=== PATIENT | female | born 1995 | race African-American/Black ===

== ENCOUNTER 2016-07-11 03:28 | Emergency (ER) | payer OTHER ==
[~2016-07-11 03:28] MED LIST: ADVAIR 100-501 EAC1; ALBUTEROL17 GM; ZYRTEC
== END 2016-07-11 03:33 | disposition home or self-care (01) ==
LOC: SED 03:28
DX: H66.002 Acute suppurative otitis media without spontaneous rupture of ear drum, left ear (principal); J06.9 Acute upper respiratory infection, unspecified; J45.909 Unspecified asthma, uncomplicated
CPT/HCPCS: 99282

== ENCOUNTER 2016-12-22 13:57 | Emergency (ER) | payer OTHER ==
--- NOTE | ~2016-12-22 | CR142 ---
[facility] A Service of [facility] RADIOLOGY TEXT RESULTS PATIENT: CHU STEVE LOCATION: SED : [birth year] UNIT #: [id number] AGE: [address]: JESSE HAMM SEX: F ORDER DR: [id number] [place] [id number] E MR#: [id number] Acc #: [id number] NAME: CHU STEVE : 1995 SEX: F STUDY DATE/TIME: 12/22/2016 14:12 UNIT: SED ROOM: STUDY DESCRIPTION: CR Hand Min 3 Views Rt Attending Physician: (Mars) Jesse Hamm Ordering Physician: Nkechi) Jesse Hamm MEDICAL IMAGING REPORT This report is preliminary unless electronic signature is present. EXAM Right hand series, dated 12/22/2016. COMPARISON None. HISTORY Right hand and right thumb pain for last 2 days. Trauma. FINDINGS Three views of the right thumb were obtained. No acute displaced fracture or dislocation is seen. There is an oval well-corticated 6 mm opacity noted in the medial and anterior aspect of the PIP joint of the third digit, within the soft tissues. No acute displaced fracture or dislocation is seen. Soft tissues do not demonstrate any significant abnormality. IMPRESSION 1. No acute displaced fracture or dislocation. 2. There is a well-corticated 6 mm opacity in the medial and anterior aspect of the PIP joint of the third digit, within the soft tissues. It is probably an ossicle or a benign calcification. No adjacent soft tissue swelling. Dictated by... Edwin Tellez M.D. THIS IS AN ELECTRONICALLY VERIFIED REPORT Edwin Tellez M.D. at 12/23/2016 3:01 PM CPR/jt TD: 12/22/2016 19:15 [facility] A Service of [facility] RADIOLOGY TEXT RESULTS PATIENT: CHU STEVE LOCATION: SED : [birth year] UNIT #: [id number] AGE: [address]: JESSE HAMM SEX: F ORDER DR: JOB #: [id number] MEDICAL IMAGING REPORT Page 1 of 1
[2016-12-22] MEDS ORDERED: BC PILLS (13:59)
== END 2016-12-22 15:32 | disposition home or self-care (01) ==
LOC: SED 13:57
DX: S60.221A Contusion of right hand, initial encounter (principal); F17.210 Nicotine dependence, cigarettes, uncomplicated; J45.909 Unspecified asthma, uncomplicated; W22.8XXA Striking against or struck by other objects, initial encounter; Y92.009 Unspecified place in unspecified non-institutional (private) residence as the place of occurrence of the external cause
CPT/HCPCS: 29280; 73130; 99283